=== PATIENT | male | born 1970 | race Caucasian/White ===

== ENCOUNTER 2018-01-01 17:52 | Emergency (ER) | payer OTHER ==
[~2018-01-01] VITALS: Ht 170.2 cm; Wt 75.3 kg
[2018-01-01 17:55] VITALS: Ht 170.2 cm; Wt 75.3 kg
[2018-01-01 19:01] VITALS: BP 120/74
== END 2018-01-01 19:01 | disposition home or self-care (01) ==
LOC: ED 17:52
DX: M94.0 Chondrocostal junction syndrome [Tietze] (principal)

== ENCOUNTER 2019-06-08 16:09 | Emergency (ER) | payer OTHER ==
[~2019-06-08] VITALS: Ht 170.2 cm; Wt 72.3 kg
[2019-06-08 16:16] VITALS: Ht 170.2 cm; Wt 72.3 kg
[2019-06-08 21:24] VITALS: BP 120/74
== END 2019-06-08 22:00 | disposition home or self-care (01) ==
LOC: ED 16:09
DX: R09.89 Other specified symptoms and signs involving the circulatory and respiratory systems (principal)
CPT/HCPCS: 43235; J1610; J2250; J3010; J7040

== ENCOUNTER 2020-02-26 03:55 | Emergency (ER) | payer OTHER ==
[~2020-02-26] VITALS: Ht 170.2 cm; Wt 72.2 kg
[2020-02-26 04:03] VITALS: Ht 170.2 cm; Wt 72.2 kg
[2020-02-26 05:07] VITALS: BP 131/84
== END 2020-02-26 05:07 | disposition home or self-care (01) ==
LOC: ED 03:55
DX: T15.02XA Foreign body in cornea, left eye, initial encounter (principal); W45.8XXA Other foreign body or object entering through skin, initial encounter; Y93.89 Activity, other specified; Y92.89 Other specified places as the place of occurrence of the external cause; Y99.8 Other external cause status
CPT/HCPCS: 90715